=== PATIENT | female | born 1950 | race Caucasian/White ===

== ENCOUNTER 2025-06-18 12:20 | Day surgery (SDC) | payer OTHER, SELFPAY ==
--- NOTE | 2025-06-15 06:00 | EKG_ITS ---
[facility] Test Date: 2025-06-15 Pat Name: LYNN COLLIER Department: Room: - Gender: Female Surgical Assist: [place] : 1950 Requested By: Jon Lo Order Number: [id number] Reading MD: Jon Lo Measurements Intervals [place] Rate: 74 P: 68 IA: 131 QRS: 45 QRSD: 89 T: 38 QT: 383 QTc: 425 Interpretive Statements SINUS RHYTHM WITH SINUS ARRHYTHMIA No previous ECG available for comparison /[id number]
[2025-06-15 12:24] LABS: Alanine Aminotransferase 20 U/L (10-49); Albumin, Serum 4.4 gm/dL (3.4-4.8); Albumin/Globulin Ratio 1.7 (1.2-2.2); Alkaline Phosphatase 53 U/L (46-116); Anion Gap 7 (7-16); Aspartate Amino Transferase 16 U/L (0-34); BUN/Creatinine Ratio 27 Ratio (12-20); Bilirubin,Total 0.3 mg/dL (0.3-1.2); Blood Urea Nitrogen 16 mg/dL (9-23); Calcium 9.8 mg/dL (8.3-10.6); Calcium (Corrected) 9.8 mg/dL (8.5-10.1); Carbon Dioxide 28.0 mMol/L (20.0-31.0); Chloride 106 mMol/L (98-107); Creatinine (Component) 0.6 mg/dL (0.6-1.3); Globulin 2.6 gm/dL (2.3-3.5); Glucose 99 mg/dL (74-106); Osmolality,Calculated 282 (275-295); Potassium 4.4 mMol/L (3.4-5.1); Sodium 141 mMol/L (136-145); Total Protein 7.0 gm/dL (5.7-8.2); eGFR > 60 See Note
[2025-06-15 14:37] VITALS: BMI 20.1
[2025-06-18] VITALS (7 sets, daily range): BP systolic 131–177; BP diastolic 74–102; PULSE 72–98; RESP 12–19; TEMP 36.8–37; O2SAT 98–100; BMI 19.0
[2025-06-18] MEDS: RINGERS LACTATED 1000 ML 1,000 ML 20 ML IV (14:03)
== END 2025-06-18 15:30 | disposition home or self-care (01) ==
PROVIDERS: Anesthesiology; PCP Student in an Organized Health Care Education/Training Program; Referring Provider Specialist; Visit Provider Specialist
PROC: 0DBE8ZX Excision of Large Intestine, Via Natural or Artificial Opening Endoscopic, Diagnostic (ICD-10-PCS; CPT 45380; principal; 2025-06-18 12:30)
PROC: (CPT 43239; 2025-06-18 12:30)
DX: K64.3 Fourth degree hemorrhoids (principal); D50.9 Iron deficiency anemia, unspecified; Z01.810 Encounter for preprocedural cardiovascular examination
CPT/HCPCS: 45398; 36415; 80053; 93005; A4649; J7120